=== PATIENT | female | born 1985 | race African-American/Black ===

== ENCOUNTER 2016-09-05 05:09 | Inpatient (IN) | payer BC ==
[2016-09-02 11:42] VITALS: BMI 24.7
[2016-09-05] MEDS ORDERED: ROCURONIUM BROMIDE 50 MG/5 ML VIAL ONE (07:28)
[2016-09-05] MEDS ORDERED: MIDAZOLAM HCL 2 MG/2 ML SINGLE DOSE VIAL ONE ×2 (07:28→07:48)
[2016-09-05] MEDS ORDERED: SUCCINYLCHOLINE CHLORIDE 200 MG/10 ML VIAL ONE (07:28)
[2016-09-05] MEDS ORDERED: PROPOFOL 20 ML ONE ×2 (07:28)
[2016-09-05] MEDS ORDERED: VASOPRESSIN 20 UNITS/ML VIAL IV ONE (07:39)
[2016-09-05] MEDS ORDERED: ROPIVACAINE HCL 0.5% 30ML VIAL ONE (07:46)
[2016-09-05] MEDS ORDERED: ceFAZolin SODIUM 1 GM VIAL IVPB ONE (08:30)
[2016-09-05] MEDS ORDERED: DEXAMETHASONE SOD PHOSPHATE 4 MG/1 ML VIAL ONE (08:42)
[2016-09-05] MEDS ORDERED: HYDROmorphone HCL/PF 1 MG/ML VIAL (FOR PYXIS CHARGING ONLY) ONE (09:12)
[2016-09-05] MEDS ORDERED: NEOSTIGMINE METHYLSULFATE 0.5 MG/ML - 10 ML MDV ONE (09:14)
[2016-09-05] MEDS ORDERED: GLYCOPYRROLATE 0.2 MG/1 ML VIAL ONE (09:14)
[2016-09-05] MEDS ORDERED: ONDANSETRON 4 MG/2 ML VIAL IVPUSH PRN (10:10)
[2016-09-05] MEDS ORDERED: HYDROmorphone HCL CARPU-JECT 1 MG/1 ML DISP.SYRIN IVPUSH PRN (10:10)
[2016-09-05] MEDS ORDERED: PROMETHAZINE HCL 25 MG/1 ML VIAL IVPB PRN (10:13)
[2016-09-05] MEDS ORDERED: DEXAMETHASONE SOD PHOSPHATE 4 MG/1 ML VIAL IVPUSH PRN (10:13)
--- NOTE | 2016-09-05 10:19 | HP ---
History & Physical Update - History History: No Change - Physical Physical: No Change - Assessment Assessment: No Change - Plan Plan: No Change
[2016-09-05] MEDS ORDERED: HYDROmorphone HCL CARPU-JECT 1 MG/1 ML DISP.SYRIN IVPB PRN (10:20)
[2016-09-05] MEDS ORDERED: oxyCODONE HCL 5 MG TABLET PO PRN (10:20)
[2016-09-05] MEDS ORDERED: HYDROmorphone *PCA* 10MG/50ML DISP.SYRIN PCA ONE (10:38)
[2016-09-05] MEDS ORDERED: HYDROmorphone HCL CARPU-JECT 2 MG/1 ML DISP.SYRIN ONE (10:49)
[2016-09-05] MEDS: HYDROmorphone *PCA* 10MG/50ML DISP.SYRIN PCA SCH (10:56)
[2016-09-05] MEDS: LACTATED RINGERS SOLUTION 1,000 ML IV SCH ×2 (13:30→18:30)
[2016-09-05] MEDS ORDERED: PCA PUMP KEY 1 EACH EACH ONE (14:14)
[2016-09-05] MEDS: CEFAZOLIN (PRE-DOCKED) 50 ML IVPB SCH (17:32)
[2016-09-05 18:16] LABS: MCHC 29.8 g/dl (32.0-36.0); MEAN CELL VOLUME 62.6 fl (80-96); MEAN PLT VOLUME 8.7 fl (7.5-11.1); PLATELET COUNT 327 K/MM3 (134-434); RDW 20.7 % (11.6-15.6); WHITE BLOOD COUNT 12.5 K/mm3 (4.0-10.0)
[2016-09-05 18:17] LABS: MCH 18.6 pg (25.7-33.7)
[2016-09-05 18:31] LABS: ANISOCYTOSIS 2+; HYPOCHROMIA 3+; MICROCYTOSIS 2+; PLATELET ESTIMATE ADEQUATE (NORMAL)
[2016-09-06] MEDS: CEFAZOLIN (PRE-DOCKED) 50 ML IVPB SCH ×2 (01:56→09:47)
[2016-09-06 08:20] LABS: BASOPHIL 0.5 % (0-2.0); EOSINOPHIL 0.1 % (0-4.5); MCHC 30.2 g/dl (32.0-36.0); MEAN CELL VOLUME 63.5 fl (80-96); MEAN PLT VOLUME 8.5 fl (7.5-11.1); NEUTROPHILS 59.4 % (42.8-82.8); PLATELET COUNT 298 K/MM3 (134-434); RDW 20.3 % (11.6-15.6); WHITE BLOOD COUNT 10.8 K/mm3 (4.0-10.0)
[2016-09-06 08:25] LABS: MCH 19.1 pg (25.7-33.7)
--- NOTE | 2016-09-06 08:40 | PN ---
Progress Note, Physician Chief Complaint: Pt seen/evaluated. Having some incision pain and feels congested, otherwise no complaints. Denies CP/SOB/F/C/DENT. No VB. Tolerating clears, no n/v. - Current Medication List Current Medications: Active Medications Acetaminophen (Tylenol -) 650 mg PO Q4H PRN PRN Reason: FEVER OR PAIN Enoxaparin Sodium (Lovenox -) 40 mg SQ DAILY МАРИЯ Hydromorphone HCl (Dilaudid Operations Support Specialist -) 10 mg RETORT LOAD EXPEDITER RETORT LOAD EXPEDITER МАРИЯ PRN Reason: Protocol Stop: 09/12/16 10:14 Last Admin: 09/05/16 10:56 Dose: 10 mg Hydromorphone HCl (Dilaudid Injection -) 1 mg IVPB Q4H PRN PRN Reason: PAIN Lactated Ringer's (Lactated Ringers Solution) 1,000 mls @ 125 mls/hr IV ASDIR МАРИЯ Last Admin: 09/05/16 18:30 Dose: 125 mls/hr Cefazolin Sodium (Ancef 1gm Ivpb (Pre-Docked)) 50 mls @ 100 mls/hr IVPB Q8H-IV МАРИЯ Stop: 09/06/16 17:59 Last Admin: 09/06/16 01:56 Dose: 100 mls/hr Oxycodone HCl (Roxicodone -) 5 mg PO Q4H PRN PRN Reason: PAIN Oxycodone HCl (Roxicodone -) 10 mg PO Q4H PRN PRN Reason: PAIN Promethazine HCl (Phenergan Injection -) 12.5 mg IVPB Q6H PRN PRN Reason: NAUSEA AND/OR VOMITING - Objective Vital Signs: Vital Signs Temperature 99.8 F H 09/06/16 07:15 Pulse Rate 93 H 09/06/16 07:15 Respiratory Rate 18 09/06/16 07:15 Blood Pressure 100/64 09/06/16 07:15 O2 Sat by Pulse Oximetry (%) 100 09/06/16 07:15 Constitutional: Yes: Well Nourished, No Distress, Calm Eyes: Yes: Conjunctiva Clear, EOM Intact HENT: Yes: Atraumatic, Normocephalic Neck: Yes: Supple, Trachea Midline Cardiovascular: Yes: Regular Rate and Rhythm Respiratory: Yes: Regular, CTA Bilaterally Gastrointestinal: Yes: Soft, Tenderness (appropriate post surgical tenderness) Wound/Incision: Yes: Dressing Dry and Intact Psychiatric: Yes: Alert, Oriented Labs: CBC, BMP 09/06/16 06:00 Problem List - Problems (1) S/P myomectomy Code(s): Z98.890 - OTHER SPECIFIED POSTPROCEDURAL STATES (2) Anemia Code(s): D64.9 - ANEMIA, UNSPECIFIED Assessment/Plan 31 y/o POD#1 s/p abdominal myomectomy -AFVSS - Anemia, Hgb 6.8 this a.m. - for 2 units packed cells - clear diet - advance as tolerated - encourage ambulation - d/c rahman - routine care
[2016-09-06] MEDS ORDERED: IBUPROFEN 600 MG TABLET (FP) PO PRN (08:41)
[2016-09-06] MEDS ORDERED: PCA PUMP KEY 1 EACH EACH ONE (08:52)
[2016-09-06] MEDS: oxyCODONE HCL 5 MG TABLET PO PRN ×3 (09:41→21:24)
[2016-09-06] MEDS: ACETAMINOPHEN 325 MG TABLET (FP) PO PRN ×3 (09:42→21:23)
[2016-09-06] MEDS: ENOXAPARIN NA (PORCINE) 40 MG/0.4 ML DISP.SYRIN SQ SCH (09:47)
[2016-09-06 11:56] LABS: ANISOCYTOSIS 1+; HYPOCHROMIA 4+; MICROCYTOSIS 2+; OVALOCYTES 2+; TEAR DROP CELLS 1+
--- NOTE | 2016-09-06 12:39 | PN ---
Progress Note (short form) - Note Progress Note: Anesthesia postop and pain management follow up 31 y/o F s/p GA for abdominal myomectomy, tap blocks and rack maker for pain management POD#1, vss, aaox3, pain well controlled, no complaints. No anesthesia complications. Will d/c rack maker when patient tolerating po.
--- NOTE | 2016-09-06 13:04 | PATH ---
Surgical Pathology Report Patient Name: ALESHA CHRISTENSEN [facility]. Rec. #: [id number] /Age/Gender: 1985 (Age: 31) / F Account: [id number] Location: [facility] OBS/LICENSED CLINICIAN Taken: 09/05/2016 Received: 09/05/2016 Reported: 09/06/2016 Physicians: Imani Randolph M.D. 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 Electronically Signed Ronald Gonzalez M.D. Gross Description Received in formalin labeled "fibroids" is a 126 g aggregate of 11 gallardo, firm to rubbery nodules, consistent with fibroids. The fibroids range from 0.9-5.0 cm in greatest dimension. Sectioning reveals gallardo, firm to rubbery parenchyma with whorled architecture. No discrete areas of hemorrhage or necrosis are identified. Blue Crabber sections are submitted in 6 cassettes. /09/05/2016 [facility]/09/05/2016
[2016-09-06] MEDS: HYDROmorphone *PCA* 10MG/50ML DISP.SYRIN PCA SCH (19:16)
[2016-09-06] MEDS: LACTATED RINGERS SOLUTION 1,000 ML IV SCH (19:17)
[2016-09-07 08:32] VITALS: BP 105/59; PULSE 91; TEMP 99
[2016-09-07 08:45] LABS: BASOPHIL 0.7 % (0-2.0); EOSINOPHIL 1.8 % (0-4.5); MCH 21.9 pg (25.7-33.7); MEAN CELL VOLUME 68.5 fl (80-96); MEAN PLT VOLUME 7.9 fl (7.5-11.1); NEUTROPHILS 63.9 % (42.8-82.8); PLATELET COUNT 334 K/MM3 (134-434); RDW 25.2 % (11.6-15.6); WHITE BLOOD COUNT 13.3 K/mm3 (4.0-10.0)
[2016-09-07] MEDS ORDERED: BISACODYL 10 MG SUPP.RECT RC ONE (09:12)
--- NOTE | 2016-09-07 09:13 | DS ---
Physical Examination Vital Signs: Vital Signs Temperature 99 F 09/07/16 08:32 Pulse Rate 91 H 09/07/16 08:32 Respiratory Rate 18 09/07/16 08:32 Blood Pressure 105/59 09/07/16 08:32 O2 Sat by Pulse Oximetry (%) 100 09/06/16 07:15 Constitutional: Yes: Well Nourished, No Distress, Calm Eyes: Yes: WNL, Conjunctiva Clear HENT: Yes: Atraumatic, Normocephalic Neck: Yes: Supple, Trachea Midline Cardiovascular: Yes: Regular Rate and Rhythm Respiratory: Yes: Regular, CTA Bilaterally Gastrointestinal: Yes: Normal Bowel Sounds, Soft. No: Tenderness Edema: No Wound/Incision: Yes: Clean/Dry, Well Approximated, Sutures Intact Neurological: Yes: Alert, Oriented Psychiatric: Yes: Alert, Oriented Labs: CBC, BMP 09/07/16 07:45 Discharge Summary Reason For Visit: ENDOMETRIAL POLYP Current Active Problems Anemia (Acute) S/P myomectomy (Acute) Procedures: Principal: Abdominal myomectomy Other Procedures: Blood transfusion - 2 units packed red cells Hospital Course: 31 y/o admitted to [facility] on 09/05/16 for scheduled abdominal myomectomy. The patient underwent an uncomplicated procedure - see full operative report for details of procedure. On post op day 1, the patient was found to have a hemoglobin of 6.8 and was given 2 units of packed red blood cells. On post op day 2 the patient's hemoglobin was 9.8. The patient met all post op milestones by post op day 2 - was passing gas, tolerating diet and ambulating and voiding. The patient was discharged home on post op day 2 in stable condition. Condition: Good - Instructions Diet, Activity, Other Instructions: Dr. Imani Randolph Rehab Tech discharge instructions Physical activity Resume your normal everyday activity as tolerated no heavy lifting or exercise until seen by your surgeon. You may walk unlimited elie of and climb stairs. You may resume driving the car when you feel safe and comfortable behind the wheel. No sexual activity as instructed by Dr. Randolph. Wound care If you have a bandage, leave it on, and keep dry for 48-72 hours. After that time discard the outer bandage. If they are tapes on the skin under the out of bandage leave them in place. They will peel off in the next 7 to 10 days. Do Not Peel them off. You may shower the day after surgery. If there are tapes present on the skin, you may shower over them. Diet There are no dietary restrictions. Eat healthy, high-fiber foods. Drink 6 to 8 glasses of liquid each day. This will assist in keeping your bowels are regular. Pain management You may take Tylenol or acetaminophen or Ibuprofen (for example, Motrin, Advil etc.) from my pain prescription medication is ordered should be taken as prescribed for moderate to severe pain. Call Dr. Randolph for any of the following: Severe pain not relieved by medication Fever of 101 or higher Excessive bleeding or drainage on dressing Inability to urinate Call the office at [phone] for an appointment in seven days. Referrals: Imani Randolph MD [Staff Physician] - Disposition: HOME - Home Medications Comprehensive Discharge Medication List: Ambulatory Orders Cholecalciferol (Vitamin D3) [Vitamin D3] 2,000 unit PO DAILY 09/02/16
[2016-09-07] MEDS: ENOXAPARIN NA (PORCINE) 40 MG/0.4 ML DISP.SYRIN SQ SCH (09:33)
[2016-09-07] MEDS: oxyCODONE HCL 5 MG TABLET PO PRN (10:17)
[2016-09-07] MEDS: ACETAMINOPHEN 325 MG TABLET (FP) PO PRN (10:17)
--- NOTE | 2016-09-08 09:37 | OP ---
Operative Note - Note: Operative Date: 09/05/16 Pre-Operative Diagnosis: Leiomyomatous Uterus Operation: Abdominal myomectomy Findings: Multiple myomas removed Post-Operative Diagnosis: Same as Pre-op Surgeon: Imani Randolph Venetian Blind Tape Cutter: Jael Coelho Anesthesia: General Estimated Blood Loss (mls): 75
--- NOTE | 2016-09-20 19:29 | OP ---
DATE OF OPERATION: 09/05/2016 PREOPERATIVE DIAGNOSIS: Leiomyomatous uterus. OPERATION: Abdominal myomectomy. FINDINGS: Multiple myomas removed. POSTOPERATIVE DIAGNOSIS: Leiomyomatous uterus. SURGEON: Imani Randolph M.D. CLASSIFICATION CLERK: Jael Coelho M.D. ANESTHESIA: General. ESTIMATED BLOOD LOSS: 75 mL. PROCEDURE: Patient was taken to operating room, placed in supine position, prepped and draped in the usual sterile fashion. A timeout was performed. Pfannenstiel skin incision was made with the scalpel. Cautery was then used to go through the layers of the abdominal wall to the level of the fascia. Fascia was cut in the midline, and cautery was then used to open the fascia in the smiling fashion. Kochers then used to bluntly and sharply dissect the rectus muscle off the fascia. Muscles split in the midline. Peritoneal cavity was entered and carried up and down. Bladder retractor was then placed. Vesiculouterine reflection was then entered. Bladder was then bluntly dissected out of the operative field. Scalpel was then used to make a, uterus was exteriorized, and multiple myomas were seen. Tourniquet was placed in the clear space of the broad ligament. Pitressin was infiltrated into the uterus. Multiple myomas were removed, largest being 5 cm. Myomas were removed using cautery and blunt and sharp dissection. The myomas were then enucleated out of the uterus. Incisions were then closed in layers using 0 Vicryl suture continuous and locking, and last layer on the serosa imbricating the uterus. Hemostasis was achieved in all incisions. Multiple incisions were made. Multiple myomas were removed, again ranging from 1 cm to 5 cm. After all myomas had been removed, the tourniquet was removed. Cautery was then used for hemostasis. Uterus interiorized after Interceed placed. Peritoneum closed using 0 Vicryl suture. Fascia closed using 0 Vicryl suture in 2 parts. Skin was then closed using 3-0 Vicryl subcuticular fashion. Wound was dressed. Patient tolerated procedure well, was taken to recovery in stable condition. Estimated blood loss 75 mL. IMANI RANDOLPH M.D. [id number] MTDD
== END 2016-09-07 10:40 | disposition home or self-care (01) | DRG 743 ==
LOC: JSAMEDAYSX 05:09 → J3W 13:19
PROVIDERS: ADMIT Obstetrics & Gynecology; ATTEND Obstetrics & Gynecology
PROC: 0UB90ZZ Excision of Uterus, Open Approach (ICD-10-PCS; principal; 2016-09-05 08:00)
PROC: 30233N1 Transfusion of Nonautologous Red Blood Cells into Peripheral Vein, Percutaneous Approach (ICD-10-PCS; 2016-09-06)
DX: D25.9 Leiomyoma of uterus, unspecified (principal); D64.9 Anemia, unspecified; K21.9 Gastro-esophageal reflux disease without esophagitis
CPT/HCPCS: 36415; 36430; 84703; 85025; 86850; 86900; 86901; 86922; 88305-TC; 94760; P9038; P9058

== ENCOUNTER 2019-03-01 07:11 | Day surgery (SDC) | payer BC, OTHER ==
[2019-02-28 11:00] VITALS: BMI 28.3
[2019-03-01] MEDS ORDERED: oxyCODONE HCL 5 MG TABLET PO PRN (08:52)
[2019-03-01] MEDS ORDERED: ONDANSETRON 4 MG/2 ML VIAL IVPUSH PRN (08:52)
[2019-03-01] MEDS ORDERED: ACETAMINOPHEN 1000 MG/100 ML VIAL (NON FORMULARY) IVPB PRN (08:53)
[2019-03-01] MEDS ORDERED: LACTATED RINGERS SOLUTION 1,000 ML IV SCH (09:00)
[2019-03-01] MEDS ORDERED: LIDOCAINE HCL 2% (20ML MULTI-DOSE VIAL) NR ONE (09:08)
[2019-03-01] MEDS ORDERED: LIDOCAINE HCL/PF 2% SDV 5ML VIAL ONE (09:12)
[2019-03-01] MEDS ORDERED: ROCURONIUM BROMIDE 50 MG/5 ML SYRINGE ONE (09:12)
[2019-03-01] MEDS ORDERED: MIDAZOLAM HCL 2 MG/2 ML SINGLE DOSE VIAL ONE ×2 (09:12→09:35)
[2019-03-01] MEDS ORDERED: PROPOFOL 20 ML ONE (09:12)
[2019-03-01] MEDS ORDERED: COCAINE HCL 4% TOPICAL SOLUTION 4 ML BOTTLE TP ONE ×2 (09:25→09:52)
[2019-03-01] MEDS ORDERED: DEXAMETHASONE SOD PHOSPHATE 4 MG/1 ML VIAL ONE (09:53)
[2019-03-01] MEDS ORDERED: LIDOCAINE 1%/EPI 1:100000 (20 ML MULTI DOSE VIAL) IJ ONE (09:59)
[2019-03-01] MEDS ORDERED: GLYCOPYRROLATE 0.2 MG/1 ML VIAL ONE (10:30)
[2019-03-01] MEDS ORDERED: NEOSTIGMINE METHYLSULFATE 0.5 MG/ML - 10 ML MDV ONE (10:30)
--- NOTE | 2019-03-01 10:53 | OP ---
Operative Note - Note: Operative Date: 03/01/19 Pre-Operative Diagnosis: nasal polyps Operation: nasal polypectomy Post-Operative Diagnosis: Same as Pre-op Surgeon: Ketan Espinoza Anesthesiologist/BORDER PATROL AGENT: Brandi Mc Anesthesia: General Specimens Removed: nasal polyps Estimated Blood Loss (mls): 50 Operative Report Dictated: Yes
[2019-03-01] MEDS ORDERED: ACETAMINOPHEN INJECTION 100 ML IVPB ONE (11:32)
--- NOTE | 2019-03-01 12:47 | OP ---
DATE OF OPERATION: 03/01/2019 PREOPERATIVE DIAGNOSIS: Nasal polyps. POSTOPERATIVE DIAGNOSIS: Nasal polyps. PROCEDURE: Nasal polypectomy. SURGEON: Ketan Espinoza MD ANESTHESIA: Brandi Mc MD, general anesthesia. INDICATIONS: The patient is a 33-year-old woman with chronic nasal obstruction and difficulty smelling, suspected to be at least partly due to nasal polyps. This was refractory to medical management, and she requested polypectomy. The nature and purpose of the proposed procedure as well as the risks, benefits, alternatives, and possible complications were discussed in detail with the patient who appears to understand and wishes to proceed with surgery. All questions were answered, and an informed consent was given by the patient. DESCRIPTION OF PROCEDURE: With the patient under general endotracheal anesthesia in the supine position with the back slightly raised, she was prepped and draped in the usual sterile fashion. The nose was examined. The inferior turbinates were noted to be large. They were decongested by injection with 3-mL of 1% lidocaine with epinephrine 1:100,000, and the rest of the operative field came into view revealing the presence of medium-sized bilateral nasal polyps. The nose was then further decongested with 4% cocaine on cottonoid pledgets, which were removed after a few minutes. Using a rotating microdebrider and a 0-degree scope, gross polyps on each side of both nasal cavities were removed from the nasal cavity, middle meatus, and superior meatus. Hemostasis was achieved with suction cautery and then Stammberger Sinu-Foam. Nasal tip dressing was then placed, and when the patient awakened, she was extubated and discharged to the recovery room in satisfactory condition. ESTIMATED BLOOD LOSS: 50 mL. COMPLICATIONS: There were no complications. A sampling of the microdebrider aspirate was sent for surgical pathology. KETAN ESPINOZA M.D. [id number] MTDD
[2019-03-01 13:04] VITALS: BP 110/67; PULSE 62; TEMP 98.5
--- NOTE | 2019-03-04 17:51 | PATH ---
Surgical Pathology Report Patient Name: ALESHA CHRISTENSEN Med. Rec. #: [id number] /Age/Gender: 1985 (Age: 33) / F Account: [id number] Location: [facility] SURGICAL Taken: 03/01/2019 Received: 03/01/2019 Reported: 03/04/2019 Physicians: Ketan Espinoza Specimen(s) Received NASAL POLYP Clinical History Polyp of nasal cavity Final Diagnosis NASAL POLYP, POLYPECTOMY: FRAGMENTS OF NASAL (INFLAMMATORY) POLYP AND RESPIRATORY MUCOSA WITH CHRONIC SINUSITIS. Electronically Signed Jayde Contreras M.D. Gross Description Received fresh labeled "nasal polyp" multiple irregular fragments of pink-gallardo hemorrhagic soft tissue measuring 3 x 2 x 0. 3 cm. Entire specimen is submitted in one cassette. [facility]/03/01/2019 [place]/03/01/2019
== END 2019-03-01 13:10 | disposition home or self-care (01) ==
LOC: JASU-SURG 07:11
PROVIDERS: ATTEND Otolaryngology
PROC: 09BK4ZX Excision of Nasal Mucosa and Soft Tissue, Percutaneous Endoscopic Approach, Diagnostic (ICD-10-PCS; principal; 2019-03-01 09:00)
DX: J33.0 Polyp of nasal cavity (principal); J32.8 Other chronic sinusitis
CPT/HCPCS: 84703; 88304-TC; 94760; J0131

== ENCOUNTER 2019-06-13 04:53 | Day surgery (SDC) | payer BC, OTHER ==
[2019-06-12 14:40] VITALS: BMI 28.3
[2019-06-13] MEDS ORDERED: ACETAMINOPHEN 325 MG TABLET (FP) PO PRN (07:19)
--- NOTE | 2019-06-13 07:19 | HP ---
History & Physical Update - History History: No Change - Physical Physical: No Change - Assessment Assessment: No Change - Plan Plan: No Change (No change in HP)
--- NOTE | 2019-06-13 07:21 | OP ---
Operative Note - Note: Operative Date: 06/13/19 Pre-Operative Diagnosis: Endometrial Polyps Operation: Hysteroscopic myomectomy. Suction DC Post-Operative Diagnosis: Same as Pre-op Surgeon: Imani Randolph Anesthesia: General Estimated Blood Loss (mls): 20 Operative Report Dictated: Yes
[2019-06-13] MEDS ORDERED: PROPOFOL 20 ML ONE (07:31)
[2019-06-13] MEDS ORDERED: MIDAZOLAM HCL 2 MG/2 ML SINGLE DOSE VIAL ONE (07:31)
[2019-06-13] MEDS ORDERED: LIDOCAINE HCL/PF 2% SDV 5ML VIAL ONE (07:32)
--- NOTE | 2019-06-13 07:32 | HP ---
Satellite [facility] - Chief Complaint Chief Complaint: Endometrial polyp History Source: Patient Limitations to Obtaining History: No Limitations - Past Medical History Allergies/Adverse Reactions: Allergies Allergy/AdvReac Type Severity Reaction Status Date / Time ibuprofen Allergy Severe Verified 03/01/19 08:15 APPLES Allergy "THROATS Uncoded 03/01/19 08:15 CLOSES" ...LMP: 05/18/19 ...: No - Current Medications Current Medications: Home Medications Medication Instructions Recorded Fluticasone Prop 0.05% Nasal 1 spray NS PRN 06/12/19 [Flonase -] Satellite Physical Exam - Physical Examination Vital Signs: Vital Signs Period Temp Pulse Resp BP Sys/Hernandez Pulse Ox Last 24 Hr 98.5 F-98.5 F 89-89 20-20 107-107/70-70 98 General Appearance: Well Nourished, Well Developed Lung: Clear to auscultation Heart: Regular rate & rhythm Breasts: Soft, Non-Tender Abdomen: Soft Extremities: No edema Pelvic Exam: Within normal limits External Genitalia, Within normal limits Vagina, Within normal limits Cervix, Within normal limits [place], Other Uterus (enodmetrial polyp) Neurological: Intact, Alert, Oriented Satellite Impression/Plan - Impression/Plan Impression: Endometrial polyp Operative Procedure: Hysteroscopic myomectomy. Suction DC Date to be Performed: 06/13/19
[2019-06-13] MEDS ORDERED: DEXAMETHASONE SOD PHOSPHATE 4 MG/1 ML VIAL ONE (08:14)
[2019-06-13 10:08] VITALS: TEMP 97.9
[2019-06-13] MEDS ORDERED: ACETAMINOPHEN 325 MG TABLET (FP) ONE (10:21)
[2019-06-13] MEDS ORDERED: oxyCODONE HCL 5 MG TABLET PO PRN (10:28)
[2019-06-13] MEDS ORDERED: LACTATED RINGERS SOLUTION 1,000 ML IV SCH (10:30)
[2019-06-13 11:45] VITALS: BP 114/86; PULSE 84
[2019-06-13] MEDS ORDERED: ONDANSETRON 4 MG/2 ML VIAL IVPUSH PRN (12:00)
--- NOTE | 2019-06-13 14:57 | OP ---
DATE OF OPERATION: 06/13/2019 PREOPERATIVE DIAGNOSIS: Endometrial polyps. OPERATION: Hysteroscopic myomectomy, suction dilation and curettage. POSTOPERATIVE DIAGNOSIS: Submucosal myoma as well as endometrial polyp. SURGEON: Imani Randolph MD ANESTHESIA: General. ANESTHESIOLOGIST: Jay Oglesby MD FINDINGS: Endometrial polyps and submucosal myoma seen in the endometrial cavity. PROCEDURE: Patient was taken to the operating room and placed in a dorsal lithotomy position, prepped and draped in the usual sterile fashion. Time-out was performed in accordance with hospital regulation. Speculum was placed in the vagina. Anterior lip of the cervix was grasped with a single-tooth tenaculum. Cervix then dilated to accommodate the operative hysteroscope. Hysteroscope was then inserted, and visualization endometrial polyps. After cautery and cutting of the polyps, a submucosal myoma was seen, and cautery and cutting of the submucosal myoma was done followed by suction dilation and curettage. Repeated procedure several times to remove and shape the endometrial cavity and remove the submucosal myoma. Contents were suctioned out. Hemostasis was achieved. Estimated blood loss 20 mL. Patient tolerated the procedure well and was taken to the recovery room in stable condition. IMANI RANDOLPH M.D. [id number]
--- NOTE | 2019-06-14 15:43 | PATH ---
Surgical Pathology Report Patient Name: ALESHA CHRISTENSEN [facility]. Rec. #: [id number] /Age/Gender: 1985 (Age: 33) / F Account: [id number] Location: [facility] SURGICAL Taken: 06/13/2019 Received: 06/13/2019 Reported: 06/14/2019 Physicians: Imani Randolph M.D. Specimen(s) Received POLYP AND FIBROIDS Clinical History Elongated polyp Final Diagnosis POLYP AND FIBROID, SUCTION DILATION AND CURETTAGE: FRAGMENTS OF ENDOMETRIAL POLYP. SEPARATE PORTIONS OF SMOOTH MUSCLE BUNDLES, CONSISTENT WITH SUBMUCOSAL LEIOMYOMA. SEPARATE SECRETORY TYPE ENDOMETRIUM. Electronically Signed Consuelo Pacheco M.D. Gross Description Received in formalin labeled "polyp and fibroid," is a 4.0 x 3.7 x 0.3 cm aggregate of gallardo pink soft tissue fragments. The formalin is filtered and the specimen is entirely submitted in 3 cassettes. /06/13/2019 [place]/06/13/2019
== END 2019-06-13 11:50 | disposition home or self-care (01) ==
LOC: JASU-SURG 04:53
PROVIDERS: ATTEND Obstetrics & Gynecology
PROC: 0UB98ZZ Excision of Uterus, Via Natural or Artificial Opening Endoscopic (ICD-10-PCS; principal; 2019-06-13 07:30)
DX: N84.0 Polyp of corpus uteri (principal); D25.0 Submucous leiomyoma of uterus
CPT/HCPCS: 36415; 84703; 86850; 86900; 86901; 86922; 88305-TC; 94760